=== PATIENT | male | born 1965 | race Caucasian/White ===

== ENCOUNTER 2018-03-17 07:14 | Day surgery (SDC) | payer OTHER ==
[2018-03-14 09:37] LABS: Absolute Lymphocytes (CBC) 2.4 K/uL (0.7-4.9); Absolute Monocytes 0.7 K/uL (0.1-1.3); Absolute Neutrophil 7.2 K/uL (1.8-8.0); Basophils % 0.7 % (0-1.3); Eosinophils % 2.9 % (0-4.4); Hematocrit 44.2 % (39.6-49.0); Lymphocytes % 22.3 % (15.3-44.8); MPV 8.1 fL (7.6-11.3); Monocytes % 6.8 % (3.3-12.3); RBC Red Blood Cell Count 4.84 M/uL (4.33-5.43)
[2018-03-14 10:19] LABS: Protime INR 0.94
[2018-03-14 11:16] LABS: Potassium 4.2 mmol/L (3.5-5.1)
--- NOTE | 2018-03-14 11:58 | RAD REPORT ---
EXAM DESCRIPTION: RAD - Chest Pa And Lat (2 Views) - 03/14/2018 9:15 am CLINICAL HISTORY: Preop chest, pending cardiac catheterization COMPARISON: CR; Chest 03/01/2015; TECHNIQUE: PA and lateral views of the chest were obtained. FINDINGS: The lungs are clear. Heart size is normal and central vasculature is within normal limit s. No pleural effusion or pneumothorax seen. No acute bony finding noted. No aortic abnormality. IMPRESSION: No acute cardiopulmonary process.
--- NOTE | 2018-03-14 16:15 | EKG ---
Test Date: 2018-03-14 Test Time: 09:19:40 Authorization Coordinator: WILFREDO MEASUREMENT RESULTS: Intervals: Rate: 70 HI: 188 QRSD: 98 QT: 376 QTc: 406 [place]: P: 79 HI: 188 QRS: 90 T: 83 INTERPRETIVE STATEMENTS: Electronic atrial pacemaker Rightward axis Anteroseptal infarct, age undetermined Abnormal ECG Compared to ECG 03/01/2015 05:23:42 Right-axis deviation now present Sinus rhythm no longer present Myocardial infarct finding still present Electronically Signed On 03-14-18 16:14:46 TRANSMISSION OPERATOR by Tacho Calloway
[2018-03-17] MEDS ORDERED: NA CHLORIDE 0.9% 500 ML ONE (08:48)
[2018-03-17 09:03] VITALS: TEMP 97.2
[2018-03-17] MEDS ORDERED: HEPA 1000U/500MLS 1,000 UNIT/500 ML BAG IV ONE (11:08)
[2018-03-17] MEDS ORDERED: HEPARIN 5000 UNIT/ML 1 ML VIAL ONE (11:24)
[2018-03-17] MEDS ORDERED: MIDAZOLAM HCL 2 MG/2 ML INJ ONE (11:25)
[2018-03-17] MEDS ORDERED: FENTANYL CITR 100 MCG/2 ML ONE (11:25)
[2018-03-17] MEDS ORDERED: NITROGLYCERIN 100 MCG/ML SYR (for cath lab use only) IV ONE (11:25)
[2018-03-17] MEDS ORDERED: NICARDIPINE HCL 25 MG/10 ML IV ONE (11:25)
[2018-03-17] MEDS ORDERED: NA CHLORIDE 0.9% 0 ML ONE (11:26)
[2018-03-17 13:49] VITALS: O2SAT 95
[2018-03-17 14:04] VITALS: BP 119/81
--- NOTE | 2018-03-17 22:58 | OP ---
Surgeon: Tacho Calloway MD Procedures: Left heart catheterization, coronary left ventricular angiography. No stent was require d. Procedure Findings: The patient's ejection fraction is reduced at about 30%. There is a large area of anterolateral, apical, and inferoapical akinesis on the left ventriculogram. Left ventricular end -diastolic pressure is elevated at 20. His coronary arteries are free of any significant stenosis. The LAD had a very long segment from ostium to the mid LAD. Probably 50 mm of artery had been stente d previously. All those stents were widely patent. There was no lesion that required any interventi on anywhere else including left main, circumflex, right coronary, or ramus. Continued medical therap y for congestive heart failure is recommended. Procedure In Detail: The patient was brought to the cardiac catheterization lab in a fasting state, sedated with Versed and fentanyl, prepared and draped in usual sterile fashion. Right radial artery was used. We anesthetized the tissue over the right radial artery with 1% lidocaine, entered the art ameya with a 21-gauge needle, cannulated the artery with 0.234-rrxs-znbhfaow guidewire, and were then a ble to place a 6-[place] Wordster radial sheath. The sheath was flushed; and a radial cocktail was admi nistered consisting of nicardipine, heparin, and nitroglycerin. We directed a TIG catheter by Wordster into the ascending aorta using a Wordster Glidewire with a short radius J-tip. The same catheter was used to angiogram the right and left coronaries and left ventricle. At the end of the procedure, all the catheters were withdrawn. The sheath was flushed, removed, and the arteriotomy was closed using a TR Band. Estimated Blood Loss: 5 cc. Complications For Procedure: None. KEO/KULDIP Voice ID: [id number] Report ID: [id number]
== END 2018-03-17 14:21 | disposition home or self-care (01) ==
LOC: CCL 07:14
PROVIDERS: ATTEND Internal Medicine
DX: I25.10 Atherosclerotic heart disease of native coronary artery without angina pectoris (principal); I11.0 Hypertensive heart disease with heart failure; I50.22 Chronic systolic (congestive) heart failure; I25.2 Old myocardial infarction; E78.2 Mixed hyperlipidemia; F17.210 Nicotine dependence, cigarettes, uncomplicated; Z79.82 Long term (current) use of aspirin; Z79.899 Other long term (current) drug therapy; Z95.5 Presence of coronary angioplasty implant and graft; Z95.810 Presence of automatic (implantable) cardiac defibrillator
CPT/HCPCS: 93005; 85025; 80048; 36415; 85610; 85730; 71046; 93458; C1893; J1644; J2250; J3010; J0583

== ENCOUNTER 2018-09-25 07:17 | Day surgery (SDC) | payer OTHER ==
--- OUTSIDE RECORDS SUMMARY | 2018-09-25 07:21 | XMS REPORT ---
:1965 Author Organization [employer] Care Team Providers Name Role Phone José Pagan Provider Role Unavailable Allergies No Known Allergies Problems No Known Problems Medications No Known Medications Results No Known Results Summary Purpose [employer] Submission
--- OUTSIDE RECORDS SUMMARY | 2018-09-25 07:21 | XMS REPORT ---
:1965 Author Organization [employer] Care Team Providers Name Role Phone José Pagan Provider Role Unavailable Allergies, Adverse Reactions, Alerts Substance Reaction Event Type N.K.D.A. Info Not Available Non Drug Allergy Problems Problem Type Condition Code Onset Dates Condition Status Assessment Umbilical hernia without obstruction K42.9 Active and without gangrene Medications Medication Code Code Instructions Start End Date Status Dosage System Date Xanax [facility] 05920189521 1 MG Orally Active 1 tablet Twice a day Lipitor [facility] 61932441932 20 MG Orally Active 1 tablet Once a day Norvasc [facility] 52196060329 5 MG Orally Once Active 1 tablet a day Plavix [facility] 33447012716 75 MG Orally Active 1 tablet Once a day Protonix [facility] 26673068809 40 MG Orally Active 1 tablet Once a day Coreg [facility] 90113587955 25 MG Orally Active as directed Aspirin 81 [facility] 37359941890 81 MG Orally Active 1 tablet Once a day Results No Known Results Summary Purpose eClinicalWorks Submission
[2018-09-25] MEDS ORDERED: Ringers Lactate 1,000 ML IV ONE (07:38)
[2018-09-25] MEDS ORDERED: CEFAZOLIN/SWI 2gm 2 GM/20 ML SYR ONE (07:38)
[2018-09-25] MEDS ORDERED: BUPIVACA 0.5%/EPI 0.0005%/PF 30 ML VIAL ONE (08:47)
[2018-09-25] MEDS ORDERED: BUPIVACA 0.5%/EPI 0.0005%/PF 10 ML VIAL ONE (08:47)
[2018-09-25] MEDS ORDERED: PROPOFOL 200 MG/20 ML VIAL IV ONE (08:49)
[2018-09-25] MEDS ORDERED: MIDAZOLAM HCL 2 MG/2 ML INJ ONE (08:49)
[2018-09-25] MEDS ORDERED: FENTANYL CITR 100 MCG/2 ML ONE (08:49)
[2018-09-25] MEDS ORDERED: dexAMETHasone 10 MG/ML VIAL ONE (08:50)
[2018-09-25] MEDS ORDERED: LIDOCAINE 2% MPF 5 ML VIAL ONE (08:50)
[2018-09-25] MEDS ORDERED: ROCURONIUM 50 MG/5 ML VIAL IV ONE (08:51)
[2018-09-25] MEDS ORDERED: KETOROLAC 30 MG/ML INJ ONE (09:55)
--- NOTE | 2018-09-25 10:02 | P.OP ---
Preoperative diagnosis: Umbilical Hernia Postoperative diagnosis: Umbilical Hernia Primary procedure: Open Umbilical Hernia Repair with Mesh Anesthesia: GETA + Local Estimated blood loss: <2cc Specimen: None Findings: ~0.75 cm hernia Complications: None Implants: 4.3 cm Bard Ventralex [place] Mesh with Strap Transferred to: Recovery Room Condition: Good
[2018-09-25] MEDS: HYDROMORPHONE HCL 1 MG/ML INJ ONE ×2 (10:27→10:29)
[2018-09-25 11:05] VITALS: O2SAT 92
[2018-09-25] MEDS ORDERED: HYDROCODONE/APAP 5/325 MG TAB ONE (11:19)
[2018-09-25 12:42] VITALS: BP 125/84; TEMP 97.5
--- NOTE | 2018-09-25 21:38 | OP ---
Date of Procedure: 09/25/2018 Surgeon: José Pagan MD, Preoperative Diagnosis: Umbilical hernia. Postoperative Diagnosis: Umbilical hernia. Procedure Performed: Open umbilical hernia repair with mesh. Anesthesia: General endotracheal plus local with 0.25% Marcaine with epinephrine. Estimated Blood Loss: Less than 2 cc. Specimens: None. Findings: 0.75 cm umbilical hernia. Complications: None. Implants: 4.3 cm Bard Ventralex circular mesh with strap. Disposition: Transferred to recovery room in good condition. Procedure In Detail: After informed consent was obtained, patient was prepped and draped in the usua l sterile fashion. After adequate anesthesia was achieved, an infraumbilical area was anesthetized w ith 0.25% Marcaine with epinephrine. A circular incision was made in the infraumbilical position. D issection continued down using both blunt and sharp dissection as well as electrocautery down to expo se the hernia defect, which was opened at this time, there was preperitoneal/omental fat emanating th rough the hernia. This was reduced to the normal anatomic position. A finger sweep was performed at this time to ensure a good landing position for the 4.3 cm Bard Ventralex mesh with strap. A 0 PDS suture was used on both lateral edges and secured the mesh in a parachute-type fashion and it was eneida delmi in the preperitoneal position and secured to the skin with the above 2 stated sutures. The fasci a was then closed over the top with a running 0 PDS suture with good approximation of tissues. The a phi was copiously irrigated and no additional hemostatic maneuvers required and the deep dermal layer was closed with a 3-0 Vicryl in an interrupted fashion. The skin was closed with a 4-0 Monocryl in a running fashion. Dermabond was placed over the top. The patient tolerated the procedure well with out incident and complication, transferred to PACU in good condition. All counts were correct at the end of the case. ABA/KULDIP Voice ID: [id number] Report ID: [id number]
== END 2018-09-25 12:00 | disposition home or self-care (01) ==
LOC: OR 07:17
PROVIDERS: ATTEND Surgery
PROC: 0WUF0JZ Supplement Abdominal Wall with Synthetic Substitute, Open Approach (ICD-10-PCS; principal; 2018-09-25 09:00)
DX: K42.9 Umbilical hernia without obstruction or gangrene (principal); I10 Essential (primary) hypertension; E78.5 Hyperlipidemia, unspecified; I25.10 Atherosclerotic heart disease of native coronary artery without angina pectoris; K21.9 Gastro-esophageal reflux disease without esophagitis; I25.2 Old myocardial infarction; Z95.810 Presence of automatic (implantable) cardiac defibrillator; Z95.5 Presence of coronary angioplasty implant and graft; Z79.82 Long term (current) use of aspirin; Z79.02 Long term (current) use of antithrombotics/antiplatelets; Z87.891 Personal history of nicotine dependence
CPT/HCPCS: 36415; 84132; 49585; J2704; J2250; J3010; J1100; J1170; J0690

== ENCOUNTER 2023-01-23 06:50 | Day surgery (SDC) | payer OTHER ==
[2023-01-22 08:29] LABS: Absolute Lymphocytes (CBC) 2.4 K/uL (0.7-4.9); Hematocrit 41.1 % (39.6-49.0); Lymphocytes % 21.4 % (15.3-44.8); MCV 90.4 fL (80-100); MPV 7.4 fL (7.6-11.3); Platelets 333 thou/uL (152-406); RBC Red Blood Cell Count 4.55 M/uL (4.33-5.43)
[2023-01-22 08:36] LABS: Protime INR 1.07
--- NOTE | 2023-01-22 08:42 | RAD REPORT ---
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 COMPARISON: Chest Pa And Lat (2 Views) dated 03/14/2018; CHEST SINGLE VIEW dated 03/01/2015 FINDINGS: The lungs are clear. The heart is normal in size. No displaced fractures. Dual lead pacer/ defibrillator. IMPRESSION: No acute or concerning finding suspected. The USPSTF recommends annual screening for lung cancer with low-dose CT (LDCT) in adults aged 50 to 8 0 years who have a 20 pack-year smoking history and currently smoke or have quit within the past 15 y ears.
[2023-01-22 08:55] LABS: Potassium 3.9 mEq/L (3.5-5.1)
--- NOTE | 2023-01-22 13:39 | EKG ---
Test Date: 2023-01-22 Test Time: 09:13:12 Hide Spreader: SAVANNA MEASUREMENT RESULTS: Intervals: Rate: 70 MN: 198 QRSD: 94 QT: 390 QTc: 421 [place]: P: 84 MN: 198 QRS: 90 T: 87 INTERPRETIVE STATEMENTS: Electronic atrial pacemaker Rightward axis Anteroseptal infarct, age undetermined Abnormal ECG Compared to ECG 03/14/2018 09:19:40 No significant changes Electronically Signed On 01-22-23 13:38:38 AERONAUTICAL DRAFTER by Bony Rojas
[2023-01-23] MEDS ORDERED: LIDOCAINE 1% 20 ML MDV ONE (06:53)
[2023-01-23] MEDS ORDERED: HEPA 1000U/500MLS 2,000 UNIT/1,000 ML BAG IV ONE (06:53)
[2023-01-23] MEDS ORDERED: MIDAZOLAM HCL 2 MG/2 ML INJ ONE (06:56)
[2023-01-23] MEDS ORDERED: VERAPAMIL HCL 10 MG/4 ML VIAL IV ONE (06:56)
[2023-01-23] MEDS ORDERED: FENTANYL CITR 100 MCG/2 ML ONE (06:56)
[2023-01-23] MEDS ORDERED: HEPARIN 10,000 UNIT/10 ML VIAL IV ONE (06:57)
[2023-01-23] MEDS ORDERED: HEPARIN 5000 UNIT/ML 1 ML VIAL ONE (06:57)
[2023-01-23] MEDS ORDERED: ASPIRIN 325 MG TAB ONE (06:57)
[2023-01-23] MEDS ORDERED: TICAGRELOR 90 MG TABLET PO ONE (06:57)
[2023-01-23] MEDS ORDERED: ATROPINE SULF 1 MG/10 ML SYR IV ONE (06:57)
[2023-01-23] MEDS ORDERED: CLOPIDOGREL 75 MG TABLET ONE (06:57)
[2023-01-23] MEDS ORDERED: NA CHLORIDE 0.9% 500 ML ONE (07:05)
--- NOTE | 2023-01-23 08:53 | OP ---
Date of Procedure: 01/23/2023 Surgeon: EAMON MARTINES Procedures Performed: 1.Selective coronary angiogram. 2.Left heart catheterization. Indication: Chest pain with abnormal stress test. Access: Right radial artery 6-Emirati closed with TR band. Complications: None. Bleeding: Less than 20 mL. Anesthesia: Total sedation time was none. Due to low blood pressure, sedation was not used. Description Of Procedure: After risks, benefits, and alternatives were explained, the patient agreed to procedure and signed informed consent. The patient was brought into [facility], prepped and draped in the usual sterile fashion. Then, I accessed right radial artery using pediatric micropuncture kit, placed a 6-Emirati slender sheath, took 5-Emirati [place] 4.0 catheter into the aortic root, engaged left main, took standard views and then the RCA took standard views and the catheter was pushed over the wire into the LV, measured the LVEDP. Pullback not recorded any gradien t, removed the catheter and the sheath, placed TR band with good hemostasis. Findings: 1.Left main is large and normal. 2.LAD; proximal 30% to 40% and then proximal to mid LAD stent that is patent. Diagonal branches are normal. Rest of the LAD is normal, become small vessel. 3.Ramus intermedius patent with luminal irregularities. 4.Left circumflex; large vessel, codominant, proximal 30% to 40%, mid 20% to 30%, distal is normal. 5.RCA: It is codominant with proximal 40% stenosis, mid 30% to 40% stenosis. 6.LVEDP normal at 10 mmHg. Conclusions: 1.Moderate coronary artery disease with widely patent LAD stent. 2.Normal LVEDP. Recommendation: Medical management. SR/MODL Voice ID: [id number] Report ID: [id number]
[2023-01-23 09:59] VITALS: BP 124/66; O2SAT 99
[2023-01-23 10:02] VITALS: TEMP 97.6
== END 2023-01-23 10:00 | disposition home or self-care (01) ==
LOC: CCL 06:50
PROVIDERS: ATTEND Internal Medicine
DX: I25.10 Atherosclerotic heart disease of native coronary artery without angina pectoris (principal); I11.0 Hypertensive heart disease with heart failure; I50.20 Unspecified systolic (congestive) heart failure; I48.91 Unspecified atrial fibrillation; E78.5 Hyperlipidemia, unspecified; Z95.0 Presence of cardiac pacemaker; Z95.5 Presence of coronary angioplasty implant and graft; F17.210 Nicotine dependence, cigarettes, uncomplicated; Z79.01 Long term (current) use of anticoagulants; Z79.899 Other long term (current) drug therapy; Z82.49 Family history of ischemic heart disease and other diseases of the circulatory system
CPT/HCPCS: 36415; 71046; 76937; 80048; 85025; 85610; 85730; 93005; 93458; 99152; 99153; C1893; J0461; J1644; J2001; J2250; J3010; J7040; Q9966